=== PATIENT | male | born 2000 | race Caucasian/White ===

== ENCOUNTER 2024-01-20 15:08 | Emergency (ER) | payer OTHER ==
[~2024-01-20] VITALS: Ht 177.8 cm; Wt 62.6 kg
[2024-01-20 15:29] VITALS: BP 105/60; PULSE 61; RESP 16; TEMP 98.5; O2SAT 99
[2024-01-20] MEDS: LIDOCAINE MPF 1% 10 MG/ML VIAL INJ ONE (16:21)
== END 2024-01-20 16:43 | disposition home or self-care (01) ==
LOC: MED 15:08
DX: S61.411A Laceration without foreign body of right hand, initial encounter (principal); W26.8XXA Contact with other sharp object(s), not elsewhere classified, initial encounter; Y93.89 Activity, other specified; Y92.89 Other specified places as the place of occurrence of the external cause; Y99.8 Other external cause status
CPT/HCPCS: 12001; 90471; 90715; 99283; J2001

== ENCOUNTER 2024-01-28 16:12 | Emergency (ER) | payer OTHER ==
[~2024-01-28] VITALS: Ht 175.3 cm; Wt 57.8 kg
[2024-01-28 16:26] VITALS: BP 124/77; PULSE 56; RESP 19; TEMP 98.6; O2SAT 99
[2024-01-28 16:40] VITALS: BP_DIAS 77
== END 2024-01-28 16:40 | disposition home or self-care (01) ==
LOC: MED 16:12
DX: S61.011D Laceration without foreign body of right thumb without damage to nail, subsequent encounter (principal); Z48.00 Encounter for change or removal of nonsurgical wound dressing; X58.XXXD Exposure to other specified factors, subsequent encounter
CPT/HCPCS: 99281